=== PATIENT | female | born 1970 | race African-American/Black ===

== ENCOUNTER 2024-08-02 22:36 | Inpatient (IN) | payer MEDICARE, MEDICAID ==
[~2024-08-02] VITALS: Ht 160 cm; Wt 80.3 kg
[~2024-08-02 22:36] MED LIST: AMI2 PO; AMLO5TAB4 PO; ATOR40TA70 PO; CARV6.2548 PO; FAMO40TA7 PO; GABA-529 PO; HYDR50TA39 PO; SIME80TA16 PO; TRAM50TA3 PO; WARF1TAB85 PO
[2024-08-02] MEDS ORDERED: CALCIUM GLUCONATE 1,000 MG in DEXT 5% WATER 100 ML IV ONE (23:15)
[2024-08-02] MEDS ORDERED: INSULIN REGULAR (HUMULIN R) 1000UNITS/10ML VIAL IV ONE (23:15)
[2024-08-02] MEDS ORDERED: SODIUM BICARBONATE 8.4% 50MEQ/50ML SYR IV ONE (23:15)
[2024-08-02] MEDS ORDERED: DEXTROSE 50% WATER 50ML SYRINGE IV ONE (23:15)
[2024-08-03] VITALS (12 sets, daily range): BP systolic 123–201; BP diastolic 55–116; PULSE 48–80; RESP 8–21; TEMP 36.6696–36.78072; O2SAT 99–100
[2024-08-03] MEDS: ALBUTEROL (0.083%) 2.5MG/3ML NEB HHN SCH
[2024-08-03 00:22] LABS: BG BASE EXCESS 3.3 mmol/L (-2.0-3.0); BG CARBOXYHEMOGLOBIN 0.3 % (0.5-1.5); BG DEOXYHEMOGLOBIN 3.2 % (0.0-5.0); BG FRACTION INSPIRED OXYGEN 21; BG METHEMOGLOBIN 0.2 % (0.5-1.5); BG OXYGEN SATURATION 96.8 % (94.0-98.0); BG OXYHEMOGLOBIN 96.3 % (94.0-98.0); BG PCO2 38.1 mmHg (32.0-45.0); BG PH 7.469 (7.350-7.450); BG PO2 91.6 mmHg (83.0-108.0); BG SAMPLE SITE RIGHT RADIAL; BG TOTAL HEMOGLOBIN 12.2 g/dL (12.0-16.0); BG VENT MODE ROOM AIR
[2024-08-03 00:44] LABS: BASOPHILS % 1.3 % (0.0-2.0); EOSINOPHILS % 12.7 % (0.0-5.0); HEMATOCRIT. 34.8 % (36.0-48.0); HEMOGLOBIN. 11.3 g/dL (12.0-16.0); LYMPHOCYTES % 25.9 % (20.0-50.0); MEAN CORPUSCULAR HEMOGLOBIN 30.2 pg (28.0-32.0); MEAN CORPUSCULAR HGB CONC 32.5 g/dL (31.0-37.0); MEAN CORPUSCULAR VOLUME 92.9 fL (81.0-99.0); MEAN PLATELET VOLUME 7.5 fl (7.4-10.4); MONOCYTES % 9.7 % (2.0-8.0); NEUTROPHILS % 50.4 % (40.0-76.0); PLATELET 156 x1000/uL (130-400); RED BLOOD CELL COUNT 3.74 mill/uL (4.2-5.4); RED CELL DISTRIBUTION WIDTH 21.5 % (11.6-14.6); WHITE BLOOD COUNT 6.9 x1000/uL (4.5-11.0)
[2024-08-03] MEDS: DEXTROSE 50% WATER 50ML SYRINGE IV NR ×2 (00:46→15:00)
[2024-08-03] MEDS: SODIUM BICARBONATE 8.4% 50MEQ/50ML SYR IV NR ×2 (00:46→15:00)
[2024-08-03] MEDS: CALCIUM GLUCONATE 1GM PREMIX 50 ML IV SCH (00:47)
[2024-08-03] MEDS: INSULIN REGULAR (HUMULIN R) 1000UNITS/10ML VIAL IV NR ×2 (00:48→15:00)
[2024-08-03 00:58] LABS: CARBON DIOXIDE 23 mEq/L (21-32); CHLORIDE 108 mEq/L (98-107); POTASSIUM 4.7 mEq/L (3.5-5.1); SODIUM 141 mEq/L (136-145)
[2024-08-03 00:59] LABS: CALCIUM 8.1 mg/dL (8.7-10.4)
[2024-08-03 01:04] LABS: GLUCOSE 84 mg/dL (70-105); UREA NITROGEN BLOOD 46 mg/dL (9-23)
[2024-08-03 01:34] LABS: CREATININE 9.6 mg/dL (0.6-1.0); TROPONIN I HIGH SENSITIVITY 133 ng/L (3.0-34)
[2024-08-03] MEDS: MORPHINE SULFATE 4 MG/ML INJ (FOR IV/IM USE) IV ONE (03:31)
[2024-08-03 04:03] LABS: TROPONIN I HIGH SENSITIVITY 118 ng/L (3.0-34)
[2024-08-03] MEDS ORDERED: CLONIDINE 0.1MG TABLET PO PRN (05:30)
[2024-08-03] MEDS ORDERED: MAGNESIUM/ALUMINUM HYDROXIDE/SIMETHICONE 30ML UDC PO PRN (05:30)
[2024-08-03] MEDS ORDERED: ACETAMINOPHEN 325MG TABLET PO PRN (05:30)
[2024-08-03] MEDS: ATROPINE SULFATE 1MG/ML VIAL IV NR (05:44)
[2024-08-03 10:17] LABS: CREATINE KINASE MB FRACTION 1.5 ng/mL (0.5-3.6)
[2024-08-03 11:02] LABS: INR 1.4; PROTHROMBIN TIME 15.1 sec (9.6-11.0)
[2024-08-03 11:04] LABS: CHLORIDE 100 mEq/L (98-107); SODIUM 137 mEq/L (136-145)
[2024-08-03 11:05] LABS: CALCIUM 10.1 mg/dL (8.7-10.4); CARBON DIOXIDE 26 mEq/L (21-32)
[2024-08-03 11:10] LABS: GLUCOSE 81 mg/dL (70-105); IRON 51 ug/dL (50-170)
[2024-08-03 11:11] LABS: LDL CHOLESTEROL 58 mg/dL (5-100); TRIGLYCERIDE 104 mg/dL (0-150); UREA NITROGEN BLOOD 43 mg/dL (9-23)
[2024-08-03 11:12] LABS: CHOLESTEROL 116 mg/dL (<200); HDL CHOLESTEROL 36 mg/dL (>65); PHOSPHORUS 5.4 mg/dL (2.5-4.9)
[2024-08-03 11:13] LABS: TOTAL IRON BINDING CAPACITY 569 ug/dl (250-425)
[2024-08-03 11:15] LABS: THYROID STIMULATING HORMONE 2.37 uIU/mL (0.55-4.78)
[2024-08-03 11:33] LABS: CREATININE 12.4 mg/dL (0.6-1.0); POTASSIUM 6.2 mEq/L (3.5-5.1)
[2024-08-03 12:26] LABS: HEPATITIS B SURFACE ANTIGEN NEGATIVE (Negative)
[2024-08-03 12:46] LABS: HEPATITIS A AB IGM NEGATIVE (Negative)
[2024-08-03 12:47] LABS: HEPATITIS B CORE AB IGM NEGATIVE (Negative); HEPATITIS C AB NON REACTIVE (Neg) (Negative)
[2024-08-03] MEDS: SEVELAMER CARBONATE 800 MG TABLET PO SCH (13:41)
[2024-08-03] MEDS: ALBUTEROL (0.083%) 2.5MG/3ML NEB HHN NR (14:45)
[2024-08-03] MEDS: SODIUM ZIRCONIUM CYCLOSILICATE 10GM/PACKET PO NR (14:52)
[2024-08-03] MEDS: CALCIUM CHLORIDE 1GM/10ML SYR IV NR (14:52)
[2024-08-03] MEDS: ONDANSETRON HCL 4MG/2ML INJ IV PRN (14:59)
[2024-08-03] MEDS: DIPHENHYDRAMINE 50MG/ML VIAL IV NR (15:36)
[2024-08-03] MEDS: SODIUM POLYSTYRENE SULFONATE 15 G/60 ML BOT PO NR (16:34)
[2024-08-03] MEDS ORDERED: WARFARIN SODIUM 3MG TABLET PO SCH (18:00)
[2024-08-03] MEDS: WARFARIN SODIUM 3MG TABLET PO NR (18:33)
[2024-08-03] MEDS: ACETAMINOPHEN 325MG TABLET PO PRN (20:07)
[2024-08-03] MEDS: FAMOTIDINE 20MG TABLET PO SCH (21:30)
[2024-08-03] MEDS: MORPHINE SULFATE 2 MG/ML INJ (NOT FOR IM USE) IV NR (22:23)
[2024-08-04] VITALS (9 sets, daily range): BP systolic 119–135; BP diastolic 67–78; PULSE 20–88; RESP 16–20; TEMP 36.16956–36.78072; O2SAT 94–100
[2024-08-04] MEDS: DIPHENHYDRAMINE 25MG CAPSULE PO NR (03:11)
[2024-08-04] MEDS: FOLIC ACID/VITAMIN B COMP W-C TABLET PO SCH (09:24)
[2024-08-04 10:23] LABS: HEMATOCRIT 39.6 % (36.0-48.0); HEMOGLOBIN 12.8 g/dL (12.0-16.0); MEAN CORPUSCULAR HEMOGLOBIN 30.2 pg (28.0-32.0); MEAN CORPUSCULAR HGB CONC 32.3 g/dL (31.0-37.0); MEAN CORPUSCULAR VOLUME 93.6 fL (81.0-99.0); PLATELET 150 x1000/uL (130-400); RED BLOOD CELL COUNT 4.23 mill/uL (4.2-5.4); RED CELL DISTRIBUTION WIDTH 21.1 % (11.6-14.6); WHITE BLOOD COUNT 6.5 x1000/uL (4.5-11.0)
[2024-08-04 10:31] LABS: POTASSIUM 4.2 mEq/L (3.5-5.1)
[2024-08-04 10:32] LABS: CALCIUM 10.2 mg/dL (8.7-10.4)
[2024-08-04 10:39] LABS: CREATINE KINASE MB FRACTION 2.1 ng/mL (0.5-3.6)
[2024-08-04 11:22] LABS: D-DIMER 4.17 mg/L FEU (<0.50); INR 1.4; PROTHROMBIN TIME 15.5 sec (9.6-11.0)
[2024-08-04] MEDS: LIDOCAINE 5% PATCH TOP PRN (13:52)
[2024-08-04] MEDS: IPRATROPIUM/ALBUTEROL 0.5-3(2.5)MG/3ML NEB HHN PRN (14:44)
[2024-08-04] MEDS ORDERED: WARFARIN SODIUM 2MG TABLET PO SCH (18:00)
[2024-08-04] MEDS: WARFARIN SODIUM 3MG TABLET PO NR (18:29)
[2024-08-04] MEDS: BUDESONIDE 0.5MG/2ML NEB HHN SCH (21:17)
[2024-08-05] VITALS (16 sets, daily range): BP systolic 110–178; BP diastolic 38–84; PULSE 66–84; RESP 17–20; TEMP 36.3918–36.6696; O2SAT 95–100
[2024-08-05] MEDS: ACETYLCYSTEINE 200MG/ML 20% VIAL 4ML INH SCH (02:15)
[2024-08-05] MEDS: DIPHENHYDRAMINE 50MG/ML VIAL IV PRN (05:06)
[2024-08-05 07:35] LABS: CALCIUM 10.4 mg/dL (8.7-10.4); CARBON DIOXIDE 28 mEq/L (21-32); CHLORIDE 95 mEq/L (98-107); POTASSIUM 3.9 mEq/L (3.5-5.1); SODIUM 137 mEq/L (136-145)
[2024-08-05 07:40] LABS: GLUCOSE 77 mg/dL (70-105)
[2024-08-05 07:41] LABS: UREA NITROGEN BLOOD 48 mg/dL (9-23)
[2024-08-05 07:43] LABS: PHOSPHORUS 6.9 mg/dL (2.5-4.9)
[2024-08-05 07:44] LABS: INR 1.5; PROTHROMBIN TIME 16.1 sec (9.6-11.0)
[2024-08-05 07:48] LABS: HEMATOCRIT 36.5 % (36.0-48.0); HEMOGLOBIN 12.1 g/dL (12.0-16.0); MEAN CORPUSCULAR HEMOGLOBIN 30.8 pg (28.0-32.0); MEAN CORPUSCULAR VOLUME 93.1 fL (81.0-99.0); PLATELET 147 x1000/uL (130-400); RED BLOOD CELL COUNT 3.92 mill/uL (4.2-5.4); RED CELL DISTRIBUTION WIDTH 21.3 % (11.6-14.6); WHITE BLOOD COUNT 6.4 x1000/uL (4.5-11.0)
[2024-08-05 08:07] LABS: CREATININE 12.1 mg/dL (0.6-1.0)
[2024-08-05] MEDS: IPRATROPIUM/ALBUTEROL 0.5-3(2.5)MG/3ML NEB HHN SCH (09:15)
[2024-08-05] MEDS: HYDROCODONE/ACETAMINOPHEN 5/325MG TABLET PO PRN (09:23)
[2024-08-05] MEDS: DIPHENHYDRAMINE 50MG/ML VIAL IV NR (11:50)
[2024-08-05] MEDS ORDERED: SEVE800T8 PO (13:45)
[2024-08-05] MEDS ORDERED: FOLI0.8T53 PO (13:45)
[2024-08-05] MEDS: WARFARIN SODIUM 3MG TABLET PO NR (18:23)
[2024-08-05] MEDS: GUAIFENESIN 200MG/10ML SUGAR FREE UDC PO PRN (19:58)
[2024-08-05] MEDS: DOCUSATE SODIUM 100MG CAPSULE PO PRN (19:58)
[2024-08-05] MEDS: GUAIFENESIN 600MG ER TABLET PO SCH (20:05)
[2024-08-06] VITALS (10 sets, daily range): BP systolic 115–160; BP diastolic 45–84; PULSE 72–90; RESP 18–22; TEMP 36.16956–36.6696; O2SAT 95–100
[2024-08-06 07:48] LABS: INR 1.4; PROTHROMBIN TIME 15.6 sec (9.6-11.0)
[2024-08-06 07:55] LABS: HEMATOCRIT 36.3 % (36.0-48.0); HEMOGLOBIN 11.6 g/dL (12.0-16.0)
[2024-08-06 08:17] LABS: CARBON DIOXIDE 27 mEq/L (21-32); CHLORIDE 99 mEq/L (98-107); POTASSIUM 4.5 mEq/L (3.5-5.1); SODIUM 137 mEq/L (136-145)
[2024-08-06 08:19] LABS: CALCIUM 10.3 mg/dL (8.7-10.4)
[2024-08-06 08:23] LABS: GLUCOSE 67 mg/dL (70-105)
[2024-08-06 08:24] LABS: UREA NITROGEN BLOOD 41 mg/dL (9-23)
[2024-08-06 09:09] LABS: CREATININE 10.1 mg/dL (0.6-1.0)
[2024-08-06] MEDS: WARFARIN SODIUM 5MG TABLET PO NR (18:18)
[2024-08-06] MEDS: HYDRALAZINE 20MG/ML VIAL IV PRN (21:44)
[2024-08-07] VITALS (17 sets, daily range): BP systolic 105–133; BP diastolic 58–87; PULSE 76–97; RESP 16–24; TEMP 36.50292–36.83628; O2SAT 97–100
[2024-08-07] MEDS: IPRATROPIUM/ALBUTEROL 0.5-3(2.5)MG/3ML NEB HHN PRN (05:34)
[2024-08-07 06:48] LABS: POTASSIUM 4.8 mEq/L (3.5-5.1)
[2024-08-07 06:49] LABS: CALCIUM 10.2 mg/dL (8.7-10.4)
[2024-08-07 06:56] LABS: INR 1.5; PROTHROMBIN TIME 16.3 sec (9.6-11.0)
[2024-08-07 07:05] LABS: BASOPHILS % 0.8 % (0.0-2.0); EOSINOPHILS % 9.4 % (0.0-5.0); HEMOGLOBIN. 12.4 g/dL (12.0-16.0); MEAN CORPUSCULAR HEMOGLOBIN 29.7 pg (28.0-32.0); MEAN CORPUSCULAR HGB CONC 31.8 g/dL (31.0-37.0); MEAN CORPUSCULAR VOLUME 93.4 fL (81.0-99.0); MEAN PLATELET VOLUME 7.5 fl (7.4-10.4); MONOCYTES % 11.8 % (2.0-8.0); PLATELET 122 x1000/uL (130-400); RED BLOOD CELL COUNT 4.17 mill/uL (4.2-5.4); RED CELL DISTRIBUTION WIDTH 20.4 % (11.6-14.6); WHITE BLOOD COUNT 5.5 x1000/uL (4.5-11.0)
[2024-08-07 07:12] LABS: CREATININE 12.3 mg/dL (0.6-1.0)
[2024-08-07] MEDS: MECLIZINE 25MG TABLET PO PRN (17:07)
[2024-08-07] MEDS ORDERED: ONDANSETRON HCL 4MG/2ML INJ IV NR (17:15)
[2024-08-07] MEDS: WARFARIN SODIUM 3MG TABLET PO NR (18:48)
[2024-08-08] VITALS: BP 143/75; PULSE 84; RESP 18; TEMP 36.55848; O2SAT 99
[2024-08-08 04:00] VITALS: BP 124/65; PULSE 75; RESP 18; TEMP 36.61404; O2SAT 99
[2024-08-08 07:01] LABS: INR 1.7; PROTHROMBIN TIME 18.3 sec (9.6-11.0)
[2024-08-08 08:00] VITALS: BP 127/69; PULSE 71; RESP 19; TEMP 36.28068; O2SAT 100
[2024-08-08 09:05] VITALS: PULSE 71; RESP 18
[2024-08-08 12:00] VITALS: BP 144/81; PULSE 72; RESP 17; TEMP 36.72516; O2SAT 100
[2024-08-08] MEDS ORDERED: WARFARIN SODIUM 3MG TABLET PO NR (18:00)
== END 2024-08-08 15:20 | disposition home or self-care (01) | DRG 640 ==
LOC: ER 22:36 → 7WST 08-03 03:16 → EDBEDREQSVC 08-03 14:37
PROVIDERS: ADMIT Internal Medicine; ATTEND Internal Medicine
PROC: 5A1D70Z Performance of Urinary Filtration, Intermittent, Less than 6 Hours Per Day (ICD-10-PCS; principal; 2024-08-03)
PROC: 5A1D70Z Performance of Urinary Filtration, Intermittent, Less than 6 Hours Per Day (ICD-10-PCS; 2024-08-05)
PROC: 5A1D70Z Performance of Urinary Filtration, Intermittent, Less than 6 Hours Per Day (ICD-10-PCS; 2024-08-07)
DX: E87.5 Hyperkalemia (principal); I21.A1 Myocardial infarction type 2; N18.6 End stage renal disease; J96.01 Acute respiratory failure with hypoxia; I12.0 Hypertensive chronic kidney disease with stage 5 chronic kidney disease or end stage renal disease; E78.5 Hyperlipidemia, unspecified; D63.1 Anemia in chronic kidney disease; I44.1 Atrioventricular block, second degree; E78.00 Pure hypercholesterolemia, unspecified; D69.6 Thrombocytopenia, unspecified; Z79.01 Long term (current) use of anticoagulants; Z79.899 Other long term (current) drug therapy; Z99.2 Dependence on renal dialysis; Z88.6 Allergy status to analgesic agent; I69.331 Monoplegia of upper limb following cerebral infarction affecting right dominant side; Z95.3 Presence of xenogenic heart valve
CPT/HCPCS: 36415; 71045; 80048; 80061; 82550; 82553; 82728; 83036; 83540; 83550; 83735; 83880; 84100; 84439; 84443; 84484; 85014; 85018; 85025; 85027; 85379; 86705; 86709; 90935; 93005; 93306; 93970; 94640; 97162; 97166; 97535; 99291; J0360; J0461; J0610; J1200; J1815; J2270; J2405; J3490; J7060; J7608; J7626; J8597; Q0163